=== PATIENT | female | born 1980 | race Caucasian/White ===

== ENCOUNTER 2017-10-18 22:58 | Emergency (ER) | payer OTHER ==
[~2017-10-18] VITALS: Ht 160 cm; Wt 85.2 kg
[~2017-10-18 22:58] MED LIST: ALBU8.5H8 INH; CETI10TA22 PO; DEXT20TA2 PO; HYDR-2679 PO; HYDR-2758 PO; IBUP800T19 PO; SULF1TAB23 PO
[2017-10-19 00:10] VITALS: BP 134/57
[2017-10-19] MEDS ORDERED: predniSONE 20 MG TABLET ONE (00:38)
[2017-10-19] MEDS ORDERED: IPRATRPIUM/ALBUTEROL 0.5/2.5MG 3 ML NEBU. ONE (00:38)
[2017-10-19] MEDS ORDERED: IPRATRPIUM/ALBUTEROL 0.5/2.5MG 3 ML NEBU. NEB ONE (00:45)
[2017-10-19] MEDS ORDERED: predniSONE 20 MG TABLET PO ONE (00:45)
[2017-10-19] MEDS ORDERED: PRED50TA PO (00:53)
[2017-10-19] MEDS ORDERED: BENZ200C47 PO (00:53)
--- NOTE | 2017-10-19 00:54 | PHYS DOC ---
Past History Past Medical History: Asthma, Other Past Surgical History: Other Smoking: Cigarettes, Greater than 1 pack/day Alcohol Use: Rarely Drug Use: None Adult General Chief Complaint Chief Complaint: FLU SYMPTOM HPI HPI 37-year-old female with a history of obesity, tobacco abuse, and asthma now presents to the emergency department complaining of wheezing and congestion. Patient states her daughter was recently diagnosed with the flu and she thinks she may have the flu as well. It has caused her to have symptoms of her asthma and she feels she needs steroids. No headache or stiff neck. No chest pain or productive cough. Denies abdominal pain and no vomiting or diarrhea. Review of Systems Review of Systems Constitutional: Denies fever or chills [] Eyes: Denies change in visual acuity, redness, or eye pain [] HENT: Denies nasal congestion or sore throat [] Respiratory: Denies cough or shortness of breath [] Cardiovascular: No additional information not addressed in HPI [] GI: Denies abdominal pain, nausea, vomiting, bloody stools or diarrhea [] : Denies dysuria or hematuria [] Musculoskeletal: Denies back pain or joint pain [] Integument: Denies rash or skin lesions [] Neurologic: Denies headache, focal weakness or sensory changes [] Endocrine: Denies polyuria or polydipsia [] All other systems were reviewed and found to be within normal limits, except as documented in this note. Allergies Allergies Allergies Coded Allergies Type Severity Reaction Last Updated Verified No Known Drug Allergies 01/11/14 No Physical Exam Physical Exam Obese 37-year-old female in no acute distress. Mucous members moist normal oropharynx supple neck mild bronchospasm with wheezing bilaterally. No rales rubs or rhonchi. Heart rate 96 on M.D. exam. Benign abdomen normal extremities with no edema noted on focal neurologic exam Constitutional: Well developed, well nourished, no acute distress, non-toxic appearance. [] HENT: Normocephalic, atraumatic, bilateral external ears normal, oropharynx moist, no oral exudates, nose normal. [] Eyes: PERRLA, EOMI, conjunctiva normal, no discharge. [] Neck: Normal range of motion, no tenderness, supple, no stridor. [] Cardiovascular:Heart rate regular rhythm, no murmur [] Lungs & Thorax: See above Abdomen: Bowel sounds normal, soft, no tenderness, no masses, no pulsatile masses. [] Skin: Warm, dry, no erythema, no rash. [] Back: No tenderness, no CVA tenderness. [] Extremities: No tenderness, no cyanosis, no clubbing, ROM intact, no edema. [] Neurologic: Alert and oriented X 3, normal motor function, normal sensory function, no focal deficits noted. [] Psychologic: Affect normal, judgement normal, mood normal. [] Current Patient Data Vital Signs Vital Signs Date Time Temp Pulse Resp B/P (MAP) Pulse Ox O2 Delivery O2 Flow Rate FiO2 10/18/17 23:00 98.2 108 22 99 Room Air EKG EKG [] Radiology/Procedures Radiology/Procedures Chest x-ray with surgical salazar implants, chronic changes with hyperinflation, no acute infiltrate or acute disease, interpreted by me[] Course & Med Decision Making Course & Med Decision Making Pertinent Labs and Imaging studies reviewed. (See chart for details) Signs and symptoms consistent with viral syndrome precipitating asthma exacerbation. DuoNeb given with improvement of symptoms. Patient stable with remarkable respiratory rate and normal pulse ox. Prednisone given in ED and prescription will be dispensed. Patient feels improved after treatment. No further workup or treatment indicated at this time. she agrees with outpatient follow-up and strict return precautions given [] Dragon Disclaimer Dragon Disclaimer This electronic medical record was generated, in whole or in part, using a voice recognition dictation system. Departure Departure: Impression: Primary Impression: Viral syndrome Additional Impressions: Asthma exacerbation Tobacco abuse Disposition: HOME, SELF-CARE Condition: IMPROVED Referrals: YOANDY DOTY MD (PCP) Patient Instructions: Asthma, Adult, Viral Syndrome Additional Instructions: It appears that you're viral syndrome has caused her to have an attack of your asthma. Your smoking will also contribute to the frequency and severity of your bronchospasm. Finish prednisone once a day as prescribed. Use your bronchodilator therapy as needed. Take Tessalon as needed for cough. Rest and drink plenty of fluids and follow-up with your doctor in 1-2 days. Return immediately for new severe worsening symptoms Scripts Benzonatate (BENZONATATE) 200 Mg Capsule 1 CAP PO TID, #24 CAP Prov: DARLIN VELAZQUEZ MD 10/19/17 Prednisone (PREDNISONE) 50 Mg Tablet 1 TAB PO DAILY, #5 TAB Prov: DARLIN VELAZQUEZ MD 10/19/17 Problem Qualifiers DARLIN VELAZQUEZ MD Oct 19, 2017 00:54
--- NOTE | 2017-10-19 08:09 | RAD ---
Chest, 2 views, 10/18/2017: History: Cough, congestion, shortness of breath, fever Comparison is made to a study from 05/10/2014. The heart size is normal. No pulmonary infiltrate is seen. There is no evidence of pleural fluid. Van rods are again noted in the thoracic spine. IMPRESSION: No acute cardiopulmonary abnormality is detected.
== END 2017-10-19 00:59 | disposition home or self-care (01) ==
LOC: ER 22:58
DX: B34.9 Viral infection, unspecified (principal); J45.901 Unspecified asthma with (acute) exacerbation; F17.210 Nicotine dependence, cigarettes, uncomplicated; E66.9 Obesity, unspecified; Z68.33 Body mass index [BMI] 33.0-33.9, adult
CPT/HCPCS: 71046; 94640; 99284; J7512; J7620

== ENCOUNTER 2018-05-03 08:05 | Emergency (ER) | payer OTHER ==
[~2018-05-03] VITALS: Ht 160 cm; Wt 86.2 kg
[~2018-05-03 08:05] MED LIST changes: +BENZ200C47 PO; +PRED50TA PO
[2018-05-03 08:10] VITALS: BP 98/56
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
== END 2018-05-03 09:20 | disposition home or self-care (01) ==
LOC: ER 08:05
DX: M77.8 Other enthesopathies, not elsewhere classified (principal); J45.909 Unspecified asthma, uncomplicated; F17.210 Nicotine dependence, cigarettes, uncomplicated
CPT/HCPCS: 73110; 99284

== ENCOUNTER 2020-07-15 16:17 | Emergency (ER) | payer OTHER ==
[~2020-07-15] VITALS: Ht 160 cm; Wt 85.2 kg
[~2020-07-15 16:17] MED LIST changes: +ALBU2.5V8 INH; -ALBU8.5H8 INH; -CETI10TA22 PO; +CETI10TA74 PO; +HYDR-2155 PO; -HYDR-2758 PO
[2020-07-15 16:25] VITALS: BP 98/56
[2020-07-15] MEDS ORDERED: METH4TAB2 PO (16:38)
--- NOTE | 2020-07-15 16:38 | PHYS DOC ---
Past History Past Medical History: Asthma, Other Additional Past Medical Histor: chronic back pain, scoliosis Past Surgical History: Other Additional Past Surgical Histo: scoliosis correction Smoking: Cigarettes, Greater than 1 pack/day Alcohol Use: Rarely Drug Use: None Adult General Chief Complaint Chief Complaint: BACK PAIN - NO INJURY HPI HPI Patient is a 40-year-old female with history of asthma, chronic low back pain who presents to the ED today complaining of chronic low back pain rated at 8 out of 10 described as throbbing intermittent. Patient states symptoms flared up 2 to 3 days ago. She called the PCP yesterday and they called in a prescription for tizanidine for her. She states she took the medicine but it is making her sleepy and not helpful. She states she called the PCP today requesting a steroid because she knows it works for her back pain, she states she was told she has to be seen to get a steroid prescription. She states the office does not have an opening until Sunday. Patient denies any injuries. Denies any loss of bowel/bladder function. Review of Systems Review of Systems Constitutional: Denies fever or chills [] Musculoskeletal: Reports low back pain Integument: Denies rash or skin lesions [] Neurologic: Denies headache, focal weakness or sensory changes [] All other systems were reviewed and found to be within normal limits, except as documented in this note. Allergies Allergies Allergies Coded Allergies Type Severity Reaction Last Updated Verified No Known Drug Allergies 07/15/20 No Physical Exam Physical Exam Constitutional: Well developed, well nourished, no acute distress, non-toxic appearance. [] Skin: Warm, dry, no erythema, no rash. [] Back: No tenderness, no CVA tenderness. [] Extremities: No tenderness, no cyanosis, no clubbing, ROM intact, no edema. [] Neurologic: Alert and oriented X 3, normal motor function, normal sensory function, no focal deficits noted. [] Psychologic: Affect normal, judgement normal, mood normal. [] Current Patient Data Vital Signs Vital Signs Date Time Temp Pulse Resp B/P (MAP) Pulse Ox O2 Delivery O2 Flow Rate FiO2 07/15/20 16:25 98.0 100 18 98/56 (70) 97 EKG EKG [] Radiology/Procedures Radiology/Procedures [] Heart Score Risk Factors: Risk Factors: DM, Current or recent (<one month) smoker, HTN, HLP, family history of CAD, obesity. Risk Scores: Risk Factors: DM, Current or recent (<one month) smoker, HTN, HLP, family history of CAD, obesity. Course & Med Decision Making Course & Med Decision Making Pertinent Labs and Imaging studies reviewed. (See chart for details) This is a 40-year-old female patient presented to the complaining of chronic low back pain and requesting steroids. Patient has no cauda equina syndrome symptoms. Prescription for Medrol Dosepak provided. Follow-up with PCP as needed. Dragon Disclaimer Dragon Disclaimer This electronic medical record was generated, in whole or in part, using a voice recognition dictation system. Departure Departure: Impression: Primary Impression: Chronic low back pain Disposition: DC HOME SELF CARE/HOMELESS Condition: STABLE Referrals: TERESE DOMÍNGUEZ (PCP) Follow-up in 1-2 weeks Patient Instructions: Back Pain, Adult, [id number] Additional Instructions: You were seen for chronic back pain. Take the prescribed medication as ordered. Follow-up with your doctor in 1 week Scripts Methylprednisolone (MEDROL) 4 Mg Tab.ds.pk 1 PKG PO UD, #1 PKG Prov: MARGO GREEN STORES DESPATCH HAND 07/15/20 Problem Qualifiers Primary Impression: Chronic low back pain Back pain laterality: bilateral Sciatica presence: without sciatica Qualified Codes: M54.5 - Low back pain; G89.29 - Other chronic pain MARGO GREEN APRN Jul 15, 2020 16:38
== END 2020-07-15 16:40 | disposition home or self-care (01) ==
LOC: ER 16:17
DX: G89.29 Other chronic pain (principal); M54.5 Low back pain; J45.909 Unspecified asthma, uncomplicated; F17.210 Nicotine dependence, cigarettes, uncomplicated
CPT/HCPCS: 99283

== ENCOUNTER 2021-04-30 04:24 | Emergency (ER) | payer MEDICAID ==
[~2021-04-30] VITALS: Ht 157.5 cm; Wt 85.2 kg
[~2021-04-30 04:24] MED LIST changes: +METH4TAB2 PO
[2021-04-30 04:46] VITALS: BP 152/70
[2021-04-30] MEDS ORDERED: LIDOCAINE 2%/EPI 1:100,000 20 ML VIAL. IJ ONE (05:00)
[2021-04-30] MEDS ORDERED: CLINDAMYCIN HCL 150 MG CAPSULE PO ONE (05:00)
[2021-04-30] MEDS ORDERED: DIPH,PERTUSS(ACELL),TET VAC/PF 0.5 ML SYRINGE. VAX IM ONE (05:00)
[2021-04-30] MEDS ORDERED: CLIN300C9 PO (05:58)
--- NOTE | 2021-04-30 05:59 | PHYS DOC ---
Past History Past Medical History: Asthma, Other Additional Past Medical Histor: chronic back pain, scoliosis Past Surgical History: Other Additional Past Surgical Histo: scoliosis correction Smoking: Cigarettes, Greater than 1 pack/day Alcohol Use: Rarely Drug Use: None General Adult EDM: Chief Complaint: ABSCESS HPI: HPI: Patient is a [age] year old [sex] who presents with [] Review of Systems: Review of Systems: Constitutional: Denies fever or chills Eyes: Denies redness or eye pain HENT: Denies nasal congestion or sore throat Respiratory: Denies cough or shortness of breath Cardiovascular: Denies chest pain or palpitations GI: Denies abdominal pain, nausea, or vomiting : Denies dysuria or hematuria Musculoskeletal: Denies back pain or joint pain Integument: Denies rash or skin lesions Neurologic: Denies headache, focal weakness or sensory changes Complete systems were reviewed and found to be within normal limits, except as documented in this note. Current Medications: Current Meds: Current Medications Medications (Trade) Dose Ordered Sig/Daniel Start Time Stop Time Status Last Admin Dose Admin Clindamycin HCl (Cleocin) 300 mg 1X ONCE 04/30/21 05:00 04/30/21 05:11 DC 04/30/21 05:05 300 MG Diphtheria/ Pertussis/Tetanus Vacc (ADACEL TDap SYRINGE) 0.5 ml ONCE ONCE 04/30/21 05:00 04/30/21 05:11 DC 04/30/21 05:06 0.5 ML Lidocaine/ Epinephrine (Xylocaine 2%-Epi 1:100,000) 20 ml 1X ONCE 04/30/21 05:00 04/30/21 05:11 DC 04/30/21 05:05 20 ML Allergies: Allergies: Allergies Coded Allergies Type Severity Reaction Last Updated Verified No Known Drug Allergies 07/15/20 No Physical Exam: PE: Constitutional: Well developed, well nourished, no acute distress, non-toxic appearance HENT: Normocephalic, atraumatic Eyes: PERRL, EOMI, conjunctiva normal, no discharge Neck: Normal range of motion, no tenderness, supple Lungs & Thorax: No respiratory distress, equal chest rise and fall Abdomen: Soft, no tenderness Skin: Warm, dry, no erythema, no rash Back: No tenderness, no CVA tenderness Extremities: No tenderness, ROM intact, no edema Neurologic: Alert and oriented X 3, normal motor function, normal sensory function, no focal deficits noted Psychologic: Affect normal, judgment normal Current Patient Data: Vital Signs: Vital Signs Date Time Temp Pulse Resp B/P (MAP) Pulse Ox O2 Delivery O2 Flow Rate FiO2 04/30/21 04:46 98.3 117 18 152/70 (97) 97 Room Air EKG: EKG: [] Radiology/Procedures: Radiology/Procedures: [] Heart Score: C/O Chest Pain: N/A Course & Med Decision Making: Course & Med Decision Making Patient stable for discharge with outpatient follow-up with PCP. Discussed findings and plan with patient, who acknowledges understanding and agreement. TipRanks Disclaimer: TipRanks Disclaimer: This electronic medical record was generated, in whole or in part, using a voice recognition dictation system. Incision and Drainage Incision and Drainage : Blade Size: 11 I & D Procedure: sterile drapes applied, sterile dressing applied, gauze wick placed Progress Verbal consent obtained. Time out performed. Hand hygiene utilized. Wound cleaned with ChloraPrep. Anesthesia obtained via a 25-gauge hypodermic needle with (15) mL's of lidocaine 2% with epinephrine. Incision made with 11 blade. Copious irrigation performed. Iodoform packing placed. Sterile dressing applie d. Patient tolerated procedure well and without difficulty. Departure Departure: Impression: Primary Impression: Abscess of left groin Disposition: HOME / SELF CARE / HOMELESS Condition: STABLE Referrals: TERESE DOMÍNGUEZ (PCP) Patient Instructions: Abscess, [id number] Additional Instructions: Remove packing in 24 hours. Do not soak your wound. After packing has been removed you may shower. Clean wound daily with soap and water. Change dressing 2 times daily. Use over the counter antibiotic ointment with each dressing change. Use [id number] Ibuprofen or Tylenol for pain or discomfort. Scripts Clindamycin Hcl (CLINDAMYCIN HCL) 300 Mg Capsule 1 CAP PO TID for infection for 7 Days, #21 CAP Prov: DARLIN RAMIREZ DO 04/30/21 DARLIN RAMIREZ DO Apr 30, 2021 05:59
== END 2021-04-30 06:08 | disposition home or self-care (01) ==
LOC: ER 04:24
DX: L02.214 Cutaneous abscess of groin (principal); J45.909 Unspecified asthma, uncomplicated; F17.210 Nicotine dependence, cigarettes, uncomplicated
CPT/HCPCS: 10060; 90471; 90715; 99283-25